=== PATIENT | female | born 1995 | race Caucasian/White ===

== ENCOUNTER 2017-01-21 16:19 | Outpatient (CLI) | payer BC, OTHER ==
[~2017-01-21] VITALS: Ht 160 cm; Wt 75.0 kg
[2017-01-21 17:35] VITALS: Ht 160 cm; Wt 75.0 kg
[2017-01-21] MEDS ORDERED: PRENTAB26 PO (17:39)
[2017-01-21 17:52] LABS: MEAN CELL VOLUME 81.3 fL (80-100); MEAN CORPUSCULAR HEMOGLOBIN 27.5 pg (25-34); MEAN PLATELET VOLUME 9.1 fL (7.4-10.4); PLATELET COUNT 303 K/uL (130-400); RED BLOOD COUNT 4.55 M/uL (4.2-5.4); WHITE BLOOD COUNT 13.13 K/uL (4.8-10.8)
[2017-01-21 18:02] LABS: INR 0.9 (0.9-1.1); PROTHROMBIN TIME (PATIENT) 9.2 SECONDS (9.0-12.0)
[2017-01-21 18:16] LABS: ALT/SGPT 13 U/L (12-78); AST/SGOT 7 U/L (15-37); BLOOD UREA NITROGEN 6 mg/dl (7-18); BUN/CREATININE RATIO 13.3 (10-20); CALCIUM 8.9 mg/dl (8.5-10.1); CARBON DIOXIDE 23 mmol/L (21-32); CHLORIDE 108 mmol/L (98-107); CREATININE 0.48 mg/dl (0.60-1.20); GLUCOSE 79 mg/dl (70-99); SODIUM 139 mmol/L (136-145); URIC ACID 4.2 mg/dl (2.6-7.2)
[2017-01-21 18:32] LABS: BASO % 0.1 %; BASO ABS # 0.01 K/uL (0-0.2); COMPLETE YES; EOS % 0.9 %; IG% 0.4 %; LYMPH % 23.8 %; LYMPH ABS # 3.12 K/uL (1.2-3.4); MEAN CORPUSCULAR HGB CONC 33.8 g/dl (32-36); NEUT % 69.8 %
== END 2017-01-21 18:44 | disposition home or self-care (01) ==
LOC: C.LD 16:19 → C.OPB 16:19
PROVIDERS: ATTEND Obstetrics & Gynecology
DX: O99.89 Other specified diseases and conditions complicating pregnancy, childbirth and the puerperium (principal); R03.0 Elevated blood-pressure reading, without diagnosis of hypertension; Z3A.39 39 weeks gestation of pregnancy

== ENCOUNTER 2017-01-27 04:37 | Inpatient (IN) | payer BC, OTHER ==
[~2017-01-27] VITALS: Ht 160 cm; Wt 75.9 kg
[~2017-01-27 04:37] MED LIST: PRENTAB26 PO
[2017-01-27 05:01] VITALS: Ht 160 cm; Wt 75.9 kg
[2017-01-27] MEDS ORDERED: LACTATED RINGER'S 1000ML 1,000 ML IV PRN (05:19)
[2017-01-27] MEDS ORDERED: LACTATED RINGER'S 1000ML 1,000 ML IV SCH (05:19)
[2017-01-27 06:19] LABS: HEMATOCRIT 37.1 % (37-47); MEAN CORPUSCULAR HEMOGLOBIN 28.2 pg (25-34); MEAN PLATELET VOLUME 9.6 fL (7.4-10.4); PLATELET COUNT 288 K/uL (130-400); RED BLOOD COUNT 4.47 M/uL (4.2-5.4); WHITE BLOOD COUNT 16.21 K/uL (4.8-10.8)
[2017-01-27] MEDS ORDERED: OXYTOCIN 30 UNITS/500ML NSS IV ONE (12:04)
--- NOTE | 2017-01-27 12:46 | Progress Note ---
Progress Note Date of Service Jan 27, 2017. Progress Note Patient is a 21 y/o at 40.5 weeks comes in with contractions that have been ongoing since yesterday morning. Her contractions increased in frequency and intensity this morning around 530 AM. On arrival she was joe every 2 -4 minutes and was found to be 4-5 cm dilated. Her care has been uneventful and she is GBS negative. Will admit to L&D for active labor. Will augment labor as needed and anticipate .
[2017-01-27] MEDS ORDERED: DIPHTHERIA/TETANUS/PERTUSSIS 0.5 ML SYR/VIAL IM. ONE (13:30)
[2017-01-27] MEDS ORDERED: BENZOCAINE 20% AER SPR 82.5 GM CAN EXT PRN (13:30)
[2017-01-27] MEDS ORDERED: ACETAMINOPHEN 325 MG TAB PO PRN (13:30)
[2017-01-27] MEDS ORDERED: LANOLIN OINT EXT PRN ×2 (13:30)
[2017-01-27] MEDS ORDERED: IBUPROFEN 600 MG TAB PO PRN (13:30)
[2017-01-27] MEDS ORDERED: ACETAMINOPHEN/CODEINE 300/30MG TAB PO PRN ×2 (13:30)
[2017-01-27] MEDS ORDERED: SUPERCREAM 0.870 % 15GM JAR EXT PRN (13:30)
[2017-01-27] MEDS ORDERED: HYDROCORTISONE ACETATE 25 MG SUPP PR PRN (13:30)
[2017-01-27] MEDS ORDERED: OXYTOCIN 30 UNITS/500ML NSS IV PRN (13:30)
[2017-01-27] MEDS ORDERED: OXYCODONE/ACETAMINOPHEN 5-325 TAB PO PRN (13:30)
--- NOTE | 2017-01-27 14:29 | DELIVERY SUMMARY ---
DATE OF OPERATION: 01/27/2017 TIME OF DELIVERY: 12:57 p.m. DELIVERY OF PLACENTA: 12:59 p.m. DELIVERY NOTE: The patient is a 21-year-old 2, para 2 at 40 weeks' and 5 days' gestation, was admitted for labor and delivery on the morning of 01/27/2017 in active labor. She did not receive an epidural for anesthesia. She was joe spontaneously on her own. She reached complete dilation at 12:28 and had spontaneous rupture of membranes right after with clear amniotic fluid noted. The patient pushed to delivery at 12:57 p.m. She delivered a viable male in the left occiput anterior position to intact perineum. Baby was delivered and placed on the patient's abdomen. Delayed cord clamping was performed. Apgars were 8 at 1 minute 9 at 5 minutes. Please see nursing notes for further baby assessment. Cord blood was then obtained. Intact placenta was 3-vessel cord was delivered at 12:59. Oxytocin infusion was than began. The lower uterine segment and vagina was cleared of any blood clots and debris. Exploration of the perineum noted a right labial laceration, which was injected with 1% lidocaine and repaired with 3-0 Vicryl suture and in continuous running fashion. Excellent hemostasis was noted. No other laceration seen. Estimated blood loss was 300 mL. All sponge, instrument and needle counts were found to be correct x2. Both the patient and baby tolerated the delivery well and were in recovery with stable vital signs. I attest to the content of the Intraoperative Record and any orders documented therein. Any exceptions are noted below. MTDD
[2017-01-27 17:45] VITALS: BP 110/68; PULSE 109; TEMP 36.8; O2SAT 98
[2017-01-27 19:30] VITALS: BP 105/70; PULSE 91; TEMP 36.7
[2017-01-27] MEDS: DOCUSATE SODIUM 100 MG CAP PO SCH (20:08)
[2017-01-27 23:15] VITALS: BP 108/66; PULSE 88; TEMP 36.8; O2SAT 99
[2017-01-28 03:45] VITALS: BP 113/58; PULSE 83; TEMP 36.9; O2SAT 97
[2017-01-28 05:42] LABS: HEMATOCRIT 32.2 % (37-47)
[2017-01-28 08:00] VITALS: BP 114/68; PULSE 105; TEMP 36.8
--- NOTE | 2017-01-28 08:26 | OB/GYN Progress Note ---
CLEAN RICE BROKER Progress Note Date of Service Jan 28, 2017. Subjective conversation w/ patient, physical exam Ambulation: ambulating normally Voiding: no voiding problems Passing Gas: Yes Diet Tolerance: Regular Diet Lochia: Small Feeding Type: Breast Feeding Objective Vital Signs Date Time Temp Pulse Resp B/P Pulse Ox O2 Delivery O2 Flow Rate FiO2 01/28/17 08:00 36.8 105 18 114/68 Room Air 01/28/17 03:45 36.9 83 18 113/58 97 Room Air 01/27/17 23:15 99 Room Air 01/27/17 23:15 36.8 88 18 108/66 99 Room Air 01/27/17 19:30 36.7 91 20 105/70 Room Air 01/27/17 17:45 36.8 109 16 110/68 98 01/27/17 17:45 98 Room Air Physical Exam General Appearance: WELL-APPEARING, NO APPARENT DISTRESS Abdomen: non tender, soft Fundus: Firm Extremities: non-tender, normal inspection, no pedal edema, no calf tenderness Laboratory Results Last 24 Hours Test 01/28/17 05:31 Hemoglobin 10.7 g/dL Hematocrit 32.2 % Assessment and Plan Post- Day Number: 1 Continue Routine Care: Tentative discharge in AM
[2017-01-28] MEDS: DOCUSATE SODIUM 100 MG CAP PO SCH ×2 (08:37→20:01)
[2017-01-28] MEDS: PRENATAL VITAMIN TAB PO SCH (08:37)
[2017-01-28] MEDS: FERROUS SULFATE 325 MG TAB PO SCH (08:38)
[2017-01-28 11:45] VITALS: BP 112/72; PULSE 71; TEMP 36.3
[2017-01-28 15:15] VITALS: BP 124/76; PULSE 88; TEMP 36.6
[2017-01-28] MEDS ORDERED: BISACODYL 5 MG TABEC PO SCH (20:00)
[2017-01-29] VITALS: BP 106/63; PULSE 76
[2017-01-29 06:22] LABS: HEMATOCRIT 30.2 % (37-47); MEAN CELL VOLUME 84.8 fL (80-100); MEAN CORPUSCULAR HEMOGLOBIN 28.1 pg (25-34); MEAN CORPUSCULAR HGB CONC 33.1 g/dl (32-36); MEAN PLATELET VOLUME 9.3 fL (7.4-10.4); PLATELET COUNT 266 K/uL (130-400); RED BLOOD COUNT 3.56 M/uL (4.2-5.4); WHITE BLOOD COUNT 10.72 K/uL (4.8-10.8)
[2017-01-29] MEDS ORDERED: BISACODYL 10 MG SUPP PR PRN (07:00)
[2017-01-29 07:21] VITALS: BP 95/55; PULSE 80; TEMP 36.5
--- NOTE | 2017-01-29 07:21 | OB/GYN Progress Note ---
BINDER CASER Progress Note Date of Service: Jan 29, 2017. Patient is seen and examined. She feels well, no complaints. Ambulating without dizziness Voiding without difficulty Tolerating regular diet with out N&V Bleeding is minimal No fever/ chills/ CP/ SOB/ N&V/ Leg pain Breast feeding without problems Date Time Temp Pulse Resp B/P Pulse Ox O2 Delivery O2 Flow Rate FiO2 01/29/17 00:00 76 16 106/63 01/29/17 00:00 Room Air 01/28/17 15:15 Room Air 01/28/17 15:15 36.6 88 18 124/76 Room Air 01/28/17 11:45 36.3 71 16 112/72 Room Air 01/28/17 08:00 36.8 105 18 114/68 Room Air 01/28/17 07:20 Room Air Test 01/21/17 17:42 01/27/17 06:00 01/28/17 05:31 01/29/17 05:45 White Blood Count 13.13 H 16.21 H 10.72 Red Blood Count 4.55 4.47 3.56 L Hemoglobin 12.5 12.6 10.7 L 10.0 L Hematocrit 37.0 37.1 32.2 L 30.2 L Mean Corpuscular Volume 81.3 83.0 84.8 Mean Corpuscular Hemoglobin 27.5 28.2 28.1 Mean Corpuscular Hemoglobin Concent 33.8 34.0 33.1 Platelet Count 303 288 266 Mean Platelet Volume 9.1 9.6 9.3 Neutrophils (%) (Auto) 69.8 Lymphocytes (%) (Auto) 23.8 Monocytes (%) (Auto) 5.0 Eosinophils (%) (Auto) 0.9 Basophils (%) (Auto) 0.1 Neutrophils # (Auto) 9.17 H Lymphocytes # (Auto) 3.12 Monocytes # (Auto) 0.66 H Eosinophils # (Auto) 0.12 Basophils # (Auto) 0.01 RDW Standard Deviation 38.2 39.8 42.4 RDW Coefficient of Variation 12.9 13.3 13.8 Immature Granulocyte % (Auto) 0.4 Immature Granulocyte # (Auto) 0.05 H Red Blood Cell Morphology Unremarkable Prothrombin Time 9.2 Prothrombin Time INR 0.9 PTT 26.2 Partial Thromboplastin Ratio 1.0 Sodium Level 139 Potassium Level 4.0 Chloride Level 108 H Carbon Dioxide Level 23 Anion Gap 8.0 Blood Urea Nitrogen 6 L Creatinine 0.48 L Est Creatinine Clear Calc Drug Dose 176.8 Estimated GFR () > 150.0 Estimated GFR (Non- 138.3 BUN/Creatinine Ratio 13.3 Random Glucose 79 Uric Acid 4.2 Calcium Level 8.9 Aspartate Amino Transferase (AST) 7 L Alanine Aminotransferase (ALT) 13 Lactate Dehydrogenase 182 PE: General: Alert, orientedx3, NAD Abd: soft, NT, fundus firm, below Umbilicus Perineum intact, Lochia rubra minimal Ext; NT, no edema AP: 21 yo s/p , ppd# 2 VSS Afebrile doing well Continue routine care All questions were answered Discussed when to call D/C home , f/u in office
--- NOTE | 2017-01-29 07:23 | Discharge Instructions ---
Discharge Instructions Date of Service Jan 29, 2017. Admission Reason for Admission: LABOR Discharge Discharge Diagnosis / Problem: Discharge Goals Goal(s): Routine recovery after delivery Medications Continue Dispensed Medications: supercream, dermaplast, inhaler Activity Recommendations Activity Limitations: as noted below Lifting Limitations: gradually increase as tolerated Exercise/Sports Limitations: until after follow-up appointment May Resume Sexual Activity: after follow-up appointment Shower/Bathe: no limitations Driving or Machine Use: ACTIVITY RECOMMENDATIONS: * Gradual return to full activity over the next 2-3 weeks. * No lifting - nothing heavier than baby over the next 2-3 weeks. * Do not engage in vigorous exercise, sexual activity or sports until cleared by your physician. * Do not drive or operate any motorized equipment until cleared by your physician. * You may shower/bathe daily. BREAST CARE: If you are not breast feeding: * Wear a supportive bra 24 hours a day for one to two weeks. * Avoid stimulating your breasts and nipples as much as possible during the first few weeks after delivery. * When taking a shower, have the warm water hit your back, not breasts. * When your breasts feel full, apply ice packs. Usually three to four times a day helps ease the discomfort. * Take a mild pain medication (Tylenol/Motrin) when you are uncomfortable. If breast feeding: * Use breast milk to lubricate nipples. Lansinoh cream may be used for sore nipples. You do not need to remove cream prior to breast feeding. If using a different brand of cream, check the label for directions regarding removal of cream prior to nursing. * Wear a supportive bra. * If having problems with breasts or breast feeding, call a bridal stylist sales consultant or your health care provider. EPISIOTOMY CARE: After delivery, if you have an episiotomy (stitches), the following steps will ease discomfort and aid healing. * For the first 24 hours after delivery, place ice packs next to your episiotomy to help reduce swelling. * After the first 24 hour-period, sitz baths, either portable or in the tub, are suggested. A shower with a shower arm sprayed over the episiotomy may be comforting. * Sahra care should be done after each voiding and bowel movement. Squirt warm water from a plastic bottle over the perineum (region of the body between the anus and urinary opening) and pat dry. * Use Dermoplast to ease discomfort. Shake container. [place] directly over the episiotomy. * Place a Tucks on a clean sanitary pad next to your episiotomy. OVER THE COUNTER MEDICATION: * For discomfort or pain, you may use Acetaminophen (Tylenol), Ibuprofen (Advil ), or Naproxen (Aleve) following the package directions. * For constipation you may use Colace following the package directions. SPECIAL CARE INSTRUCTIONS: When you are discharged from the hospital, it is important for you to follow the instructions listed below: * During the first week at home, you should be able to care for yourself and your baby. In addition, the usual light household activities are encouraged. * Limit your activities to the way you feel. Do not try to clean the house or move furniture. Be sensible. * If you actively engage in sports and have done so up until the time of your delivery, you may resume these activities as soon as you feel able. This may take up to one month or even longer. Use good judgment. * Continue to take your vitamins for at least six weeks after the of your baby. * Your diet need not be limited unless you were on a special diet before your delivery. Breast-feeding mothers need around 2500 calories per day and at least 64-80 ounces of fluid per day (8 to 10 glasses). * You should eat foods from the four major food groups. Crash diets or fad diets are to be avoided. Eating lean meats, fresh fruits and vegetables, low-fat dairy products, high fiber foods and a regular exercise program, will help you get back to your pre- weight without putting your health at risk. * Constipation is sometimes a problem after delivery. Take a mild laxative as needed. If breast feeding, Milk of Magnesia is acceptable to use. You may use a suppository or Fleets enema if no episiotomy. * A daily shower or tub bath is suggested. Be sure to thoroughly and gently dry the perineum. * A bloody vaginal discharge will usually continue until around four weeks post . A small amount of bleeding may continue for as long as six weeks. Vaginal discharge changes from the bright red bleeding after delivery to pink then brownish and finally yellowish-pink before becoming white and disappearing. * Bleeding may increase with activity. Your first period may come in 4-8 weeks. If you are breast feeding, your period may be delayed even longer. * [place] (sex) can begin whenever both you and your partner feel comfortable and do not have any form of genital infection. It is recommended that you wait until after your return appointment and discuss with your physician. If you have questions, please talk to your health care practitioner. A condom should be used to prevent infection and . * Foreplay, gentle intercourse and lubrication is very important the first several times to prevent pain. A water-based lubricant such as K-Y jelly or Astroglide may be used. * Tampons may be used six weeks after delivery. * Douching should be avoided for 6 weeks after delivery. * If you have RH negative blood and your baby is RH positive, you will receive RHOGAM by injection prior to discharge. The nurse will give you a card to keep with you that has the date and place that you received RHOGAM after delivery. * During your care, you had a Rubella screen done to check for the presence of rubella antibodies in your blood. If your test was negative, you will receive a Rubella vaccine prior to discharge. This vaccine may cause a fever, soreness at the injection site and flu-like symptoms. If these symptoms persist, notify your health care practitioner. is not advised for three months after a Rubella vaccine. There is a higher chance of having a baby with defects if conceived within three months of getting the vaccine. * If you were discharged 24 hours from delivery or before 48 hours: Visiting nurses will come to your home 48 hours after discharge to assess you and your baby. The visiting nurse will meet with you while you are in the hospital to arrange a time and get directions to your home. * Verbalizes understanding of car seat law as reviewed with patient nursing. * Car Seat hand-out given and reviewed with patient by nursing. * Shaken baby information reviewed with patient by nursing. Call you doctor if: * Heavy bleeding (saturating several pads an hour) or passing clots the size of your fist. * A fever >101 degrees F (38.3 degrees C) on two occasions four hours apart and/or chills. * Unusual pain in the pelvic or vaginal areas. * "Baby Blues" lasting longer than two weeks. If you have any questions or concerns, call your health care practitioner at . FOLLOW-UP VISIT: * Please call the office at to schedule a 6 week examination. It is important you keep this appointment. * It is important for you to make arrangements for either yearly or twice yearly check-ups thereafter. . Current Hospital Diet Patient's current hospital diet: Regular OB Diet Discharge Diet Recommended Diet: Regular Diet Pending Studies Studies pending at discharge: no Medical Emergencies . Who to Call and When: Medical Emergencies: If at any time you feel your situation is an emergency, please call 911 immediately. . Non-Emergent Contact Non-Emergency issues call your: Primary Care Provider, Surgeon Call Non-Emergent contact if: temperature is above 100.5, your pain is not controlled, your pain is worsening . . "Provider Documentation" section prepared by Lisa Fry. VTE Core Measure Inpt VTE Proph given/why not?: Treatment not indicated
[2017-01-29] MEDS: DOCUSATE SODIUM 100 MG CAP PO SCH (08:16)
[2017-01-29] MEDS: FERROUS SULFATE 325 MG TAB PO SCH (08:16)
[2017-01-29] MEDS: PRENATAL VITAMIN TAB PO SCH (08:16)
== END 2017-01-29 11:05 | disposition home or self-care (01) | DRG 775 ==
LOC: C.OPB 04:37 → C.LD 04:42 → C.OPB 05:25 → C.OBG 17:08
PROVIDERS: ADMIT Obstetrics & Gynecology; ATTEND Obstetrics & Gynecology
PROC: 10E0XZZ Delivery of Products of Conception, External Approach (ICD-10-PCS; principal; 2017-01-27)
PROC: 0UQMXZZ Repair Vulva, External Approach (ICD-10-PCS; principal; 2017-01-27)
DX: O48.0 Post-term pregnancy (principal); O70.0 First degree perineal laceration during delivery; Z3A.40 40 weeks gestation of pregnancy; Z37.0 Single live birth

== ENCOUNTER 2019-09-09 07:58 | Inpatient (IN) ==
[2019-09-09] MEDS ORDERED: OXYTOCIN 30 UNITS/500 ML BAG IV PRN ×3 (08:35→21:12)
[2019-09-09 08:53] LABS: Hematocrit (blood only) 38.8 % (37-47); Hemoglobin 13.2 g/dL (12.0-16.0); Mean Corpuscular Volume 85.3 fL (80-100); Mean Platelet Volume 9.5 fL (7.4-10.4); Platelet Count 304 K/uL (130-400); RDW Coefficient of Variation 13.1 % (11.5-14.5); RDW Standard Deviation 40.5 fL (36.4-46.3); Red Blood Count 4.55 M/uL (4.2-5.4); White Blood Count 11.73 K/uL (4.8-10.8)
[2019-09-09] MEDS: LACTATED RINGER'S 1,000 ML IV PRN ×3 (09:16→16:13)
[2019-09-09] MEDS: CALCIUM CARBONATE 500 MG CHEWABLE TAB PO PRN ×2 (11:34→16:15)
[2019-09-09] MEDS ORDERED: ePHEDrine sulfate 50 MG/ML AMP ONE (15:23)
[2019-09-09] MEDS ORDERED: fentaNYL citrate 100 MCG/2 ML VIAL ONE (15:23)
[2019-09-09] MEDS ORDERED: BUPIVACAINE 0.25% 30 ML VIAL ONE (15:24)
[2019-09-09] MEDS ORDERED: fentaNYL 2MCG/ML ROPIV 1.25MG/ML 100 ML BAG EPI ONE (15:25)
--- NOTE | 2019-09-09 15:55 | Anesthesiology Consultation ---
Date of Service September 09, 2019 Assessment & Plan Chart Review Chart Review: Acceptable Risk for Labor Epidural ASA ASA2 Proposed Anesthesia Anesthesia Type: Labor Epidural Risk / Benefits Reviewed With: PT / POA / Parent / Guardian, Accepts Plan and Informed Consent Obtained History Height/Weight Height: 5 ft 3 in Weight: 62.596 kg Allergies Allergy/AdvReac Type Severity Reaction Status Date / Time No Known Allergies Allergy Verified 09/04/19 17:47 Medications Home Medications Medication Instructions Recorded Confirmed Last Taken PNV cmb#95-ferrous fumarate-FA 1 tab PO DAILY 09/04/19 09/09/19 09/07/19 [] magnesium 400 mg PO BID 09/04/19 09/09/19 09/07/19 Active Medications Generic Name Dose Route Start Last Admin Trade Name Freq PRN Reason Stop Dose Admin Calcium Carbonate 1,000 mg 09/09/19 11:21 09/09/19 11:34 Tums PO 10/09/19 11:20 1,000 mg Q4 PRN Administration Indigestion Lactated Ringer's 1,000 mls @ 125 mls/hr 09/09/19 08:35 09/09/19 15:19 Lr IV 09/11/19 08:34 999 mls/hr .Q8H PRN Administration L&D Protocol Protocol Oxytocin 30 units in 500 mls @ 8 mls/hr 09/09/19 08:38 09/09/19 15:06 Pitocin IV 09/11/19 08:37 0.48 units/hr .Q24H PRN 8 mls/hr Labor Induction/Augmentation Titration Protocol 0.48 UNITS/HR Past Medical History Medical History (Updated 09/09/19 @ 08:14 by Isamar Aparicio RN) No known health problems Vaginal delivery Exercise / Class Metabolic Activity II 4-5 Yardwork/Stairs/Walk up hill Past Family History Family History (Updated 09/09/19 @ 08:14 by Isamar Aparicio RN) Grandfather (Maternal) Diabetes Past Surgical History Surgical History (Updated 09/09/19 @ 08:14 by Isamar Aparicio RN) No history of previous surgery Past Anesthesia History No Hx of Anesthesia Complications and No Family Hx of Anesthesia Complications History of PONV No Hx of PONV and No Hx of Motion Sickness Social History Smoking Status: Current every day smoker tobacco type: cigarettes Smoking cigarettes per day: 2 Do You Dip or Chew Tobacco: No Hx Alcohol Use: No Hx Substance Use: No substance use type: does not use Physical Exam Vital Signs Last Vital Signs Temp 37.2 C 09/09/19 14:19 Pulse 83 09/09/19 16:01 Resp 18 09/09/19 15:07 BP 103/58 L 09/09/19 16:00 Pulse Ox 100 09/09/19 16:01 Testing Laboratory Results 09/09/19 08:40
[2019-09-09] MEDS ORDERED: fentaNYL 2MCG/ML ROPIV 1.25MG/ML 100 ML BAG EPI PRN (16:03)
[2019-09-09] MEDS ORDERED: ePHEDrine sulfate 50 MG/ML AMP IV PRN (16:03)
[2019-09-09] MEDS ORDERED: NALOXONE HCL 0.4 MG/1 ML VIAL/CARP IV PRN (16:03)
[2019-09-09] MEDS ORDERED: DiphenhydrAMINE HCL 50 MG/ML VIAL IV PRN (16:03)
[2019-09-09] MEDS ORDERED: NALOXONE HCL 1 MG in SODIUM CHLORIDE 0.9% 1000ML 1,000 ML IV PRN (16:03)
[2019-09-09] MEDS ORDERED: NALBUPHINE HCL INJ 10 MG/ML AMP IV PRN (16:03)
[2019-09-09] MEDS ORDERED: ONDANSETRON INJ 2 MG/ML 2 ML VIAL IV PRN ×2 (16:03→21:51)
[2019-09-09] MEDS ORDERED: METHYLERGONOVINE MALEATE 0.2 MG/ML AMP ONE (21:09)
[2019-09-09] MEDS ORDERED: SUPERCREAM 0.870% 15 GM JAR EXT PRN (21:12)
[2019-09-09] MEDS ORDERED: DIPHTHERIA/TETANUS/PERTUSSIS 0.5 ML SYR/VIAL IM ONE (21:12)
[2019-09-09] MEDS ORDERED: BISACODYL 10 MG SUPP PR PRN (21:12)
[2019-09-09] MEDS ORDERED: OXYCODONE/ACETAMINOPHEN 5mg/325mg TAB PO PRN (21:12)
[2019-09-09] MEDS ORDERED: ACETAMINOPHEN W/CODEINE #3 1 TAB PO PRN (21:12)
[2019-09-09] MEDS ORDERED: HYDROCORTISONE ACETATE 25 MG SUPP PR PRN (21:12)
[2019-09-09] MEDS ORDERED: ACETAMINOPHEN 325 MG TAB PO PRN (21:12)
[2019-09-09] MEDS ORDERED: BENZOCAINE 20% AER SPR 82.5 GM CAN EXT PRN (21:12)
[2019-09-09] MEDS ORDERED: IBUPROFEN 600 MG TAB PO PRN (21:12)
[2019-09-09] MEDS ORDERED: MEASLES, MUMPS & RUBELLA VIRUS VIAL SQ ONE (21:12)
[2019-09-09] MEDS ORDERED: METHYLERGONOVINE MALEATE 0.2 MG/ML AMP IM ONE (21:12)
[2019-09-09] MEDS ORDERED: ONDANSETRON INJ 2 MG/ML 2 ML VIAL ONE (21:52)
--- NOTE | 2019-09-09 22:08 | Anesthesia Procedure Note ---
Date of Service September 09, 2019 Anesthesia Post Epidural Note Vital Signs Vital Signs: Temp Pulse Resp BP Pulse Ox 37.7 C H 77 18 112/56 L 99 09/09/19 20:00 09/09/19 22:06 09/09/19 17:36 09/09/19 22:06 09/09/19 21:06 Pain Intensity Left Abdomen: Pain Intensity: 1 Notes Mental Status: alert / awake / arousable and participated in evaluation Patient Amnestic to Procedure: Yes Nausea / Vomiting: adequately controlled Pain: adequately controlled Airway Patency, RR, SpO2: stable & adequate BP & HR: stable & adequate Hydration State: stable & adequate Anesthetic Complications: no major complications apparent and Pt Satisfied with anesthetic care
--- NOTE | 2019-09-09 22:59 | Operative Report ---
DATE OF OPERATION: 09/09/2019 DELIVERY NOTE 2, para 2, blood type is A positive. Group B strep negative. Due date 09/14/2019. Had a history of having a growth retarded fetus first time about 6 pounds and she had some questionable strips in the office. They were evaluated at the hospital, they turned out to be good and reactive. She was brought in for induction. She was several centimeters dilated when she came in, she was started directly on IV Pitocin. Membranes were eventually ruptured surgically. She had epidural anesthesia for pain control, went to full dilatation, delivered a live via direct occiput anterior position over an intact perineum. Infant was suctioned through the mouth and the nose. Shoulders were delivered without difficulty. Cord was clamped, cut by the patient's mother. Cord blood was taken. With IV Pitocin running, the placenta was removed intact. There were no lacerations. She was given 0.2 of Methergine in addition to the Pitocin. Estimated blood loss was 300 mL. Apgars were deferred to the nurses. The patient tolerated the procedure well. I attest to the content of the Intraoperative Record and any orders documented therein. Any exception s are noted below.
[2019-09-10 07:06] LABS: Hematocrit (blood only) 34.7 % (37-47); Hemoglobin 11.8 g/dL (12.0-16.0); Mean Corpuscular Hemoglobin 29.3 pg (25-34); Mean Corpuscular Volume 86.1 fL (80-100); Mean Platelet Volume 9.6 fL (7.4-10.4); Platelet Count 276 K/uL (130-400); RDW Coefficient of Variation 13.1 % (11.5-14.5); RDW Standard Deviation 41.3 fL (36.4-46.3); Red Blood Count 4.03 M/uL (4.2-5.4); White Blood Count 15.77 K/uL (4.8-10.8)
--- NOTE | 2019-09-10 08:25 | Obstetrical Progress Note ---
Date of Service September 10, 2019 Subjective Patient is seen and examined. She feels well, no complaints. Ambulating without dizziness Voiding without difficulty Tolerating regular diet with out N&V Bleeding is minimal No fever/ chills/ CP/ SOB/ N&V/ Leg pain Breast feeding without problems Vital Signs Temp Pulse Pulse Resp BP BP Pulse Ox 09/10/19 07:57 36.8 C 84 20 111/71 09/10/19 03:15 36.8 C 78 18 114/72 96 09/10/19 00:00 36.7 C 76 16 117/69 98 09/09/19 23:06 88 110/58 L 09/09/19 22:51 96 H 117/67 09/09/19 22:36 85 122/68 09/09/19 22:21 72 113/73 09/09/19 22:06 77 112/56 L 09/09/19 22:01 75 113/55 L 09/09/19 21:51 112 H 192/88 H 09/09/19 21:21 98 H 133/67 09/09/19 21:06 120 H 99 09/09/19 21:04 121 H 87 L 09/09/19 21:01 102 H 81 L 09/09/19 20:56 103 H 100 09/09/19 20:51 98 H 132/81 100 09/09/19 20:46 88 100 09/09/19 20:41 91 H 100 09/09/19 20:38 94 H 135/75 09/09/19 20:36 104 H 97 09/09/19 20:31 90 99 09/09/19 20:26 87 100 PE: General: Alert, orientedx3, NAD Abd: soft, NT, fundus firm, below Umbilicus Perineum intact, Lochia rubra minimal Ext; NT, no edema AP: 24 yo s/p , ppd# 1 VSS Afebrile doing well Continue routine care All questions were answered D/C home tomorrow Results & Data Vital Signs (Past 12 Hours) Vital Signs Temp Pulse Pulse Resp BP BP Pulse Ox 09/10/19 07:57 36.8 C 84 20 111/71 09/10/19 03:15 36.8 C 78 18 114/72 96 09/10/19 00:00 36.7 C 76 16 117/69 98 09/09/19 23:06 88 110/58 L 09/09/19 22:51 96 H 117/67 09/09/19 22:36 85 122/68 09/09/19 22:21 72 113/73 09/09/19 22:06 77 112/56 L 09/09/19 22:01 75 113/55 L 09/09/19 21:51 112 H 192/88 H 09/09/19 21:21 98 H 133/67 09/09/19 21:06 120 H 99 09/09/19 21:04 121 H 87 L 09/09/19 21:01 102 H 81 L 09/09/19 20:56 103 H 100 09/09/19 20:51 98 H 132/81 100 09/09/19 20:46 88 100 09/09/19 20:41 91 H 100 09/09/19 20:38 94 H 135/75 09/09/19 20:36 104 H 97 09/09/19 20:31 90 99 09/09/19 20:26 87 100
[2019-09-10] MEDS: FERROUS SULFATE 325 MG TAB PO SCH (08:41)
[2019-09-10] MEDS: DOCUSATE SODIUM 100 MG CAP PO SCH ×2 (08:41→20:33)
[2019-09-10] MEDS: PRENATAL VITAMIN 1 TAB PO SCH (08:41)
[2019-09-10] MEDS ORDERED: BISACODYL 5 MG TABEC PO SCH (20:00)
[2019-09-10 23:03] VITALS: O2SAT 98
[2019-09-11 06:53] LABS: Hematocrit (blood only) 34.3 % (37-47); Hemoglobin 11.2 g/dL (12.0-16.0)
[2019-09-11 07:29] VITALS: BP 108/69; PULSE 108; TEMP 98.2
[2019-09-11] MEDS: PRENATAL VITAMIN 1 TAB PO SCH (08:30)
[2019-09-11] MEDS: FERROUS SULFATE 325 MG TAB PO SCH (08:30)
[2019-09-11] MEDS: DOCUSATE SODIUM 100 MG CAP PO SCH (08:30)
--- NOTE | 2019-09-11 09:04 | Obstetrical Progress Note ---
Date of Service September 11, 2019 Assessment & Plan (1) normal course: PPD #2 [pt doing well d/c home with instructions Subjective Ambulation: ambulating normally Voiding: no voiding problems Passing Gas:: Yes Diet Tolerance:: regular diet Lochia:: Small Feeding Type:: breast feeding Review of Systems All systems reviewed & are unremarkable except as noted in HPI & below Physical Exam Constitutional WD/WN, vitals as above well developed and well nourished Eyes PERRL, conjunctivae normal, anicteric sclerae Neck trachea midline, no thyromegaly Respiratory normal respiratory effort, lungs clear to auscultation Auscultation: no crackles, no rales and no wheezes Cardiovascular RRR, no murmur, no edema Gastrointestinal (Abdomen) normal bowel sounds, soft, nontender, no hepatosplenomegaly Uterus is below umbilicus Musculoskeletal no cyanosis or clubbing, extremities motor strength 5/5 Skin no rashes, warm and dry Neurologic patellar DTR's 2+ bilat, sensation intact Psychiatric A+Ox3, euthymic affect Genitourinary normal external appearance Results & Data Vital Signs (Past 12 Hours) Vital Signs Temp Pulse Resp BP Pulse Ox 09/11/19 07:28 36.8 C 108 H 18 108/69 98 09/10/19 23:30 36.7 C 85 17 107/60 98
== END 2019-09-11 11:55 | disposition home or self-care (01) | DRG 807 ==
LOC: 4S1 07:58 → 4S2 23:55

== ENCOUNTER 2021-06-02 04:06 | Inpatient (IN) ==
[2021-06-02] MEDS ORDERED: OXYTOCIN 30 UNITS/500 ML BAG IV PRN ×2 (04:39→06:39)
[2021-06-02] MEDS ORDERED: LACTATED RINGER'S 1,000 ML IV PRN (04:45)
[2021-06-02] MEDS ORDERED: PENICILLIN G POTASSIUM 6 MU in DEXTROSE 5% 250 ML IV STA (04:46)
[2021-06-02] MEDS ORDERED: PENICILLIN G POTASSIUM 3 MU in DEXTROSE 5% 100 ML IV PRN (05:00)
--- NOTE | 2021-06-02 05:08 | History & Physical Report ---
Date of Service June 02, 2021 Assessment & Plan Admission and Anticipated Discharge Date Admission Date: June 02, 2021 History of Present Illness Chief Complaint: term in labor Primary Care Provider: MIRIAM PCP 26 F P2002 at 38.4 weeks admitted in active labor at 8cm. GBS is positive. Covid is pending. Allergies Allergy/AdvReac Type Severity Reaction Status Date / Time No Known Allergies Allergy Verified 06/02/21 04:18 Home Medications Medication Instructions Recorded Confirmed Type vit no.95-ferrous 1 tab PO DAILY 09/04/19 06/02/21 History fumarate 28 mg-folic acid 800 mcg tablet () Patient History Medical History No known health problems Vaginal delivery Surgical History No history of previous surgery Family History Grandfather (Maternal) Diabetes Social History Smoking Status: Current every day smoker Cigarettes Per Day: 2; Second Hand Exposure: Yes; Do You Dip or Chew Tobacco: No; Hx Alcohol Use: No Hx Substance Use: No Preferred Language: Gabonese Communication Ability: Effective Director Metabolism Required: No Beliefs That Will Affect Care: None marital status: Single Current Living Situation: Parent and Family Current Living Situation Comment: Lives with parents and son, Max Other Information That Helps Us Care for You: No Feels Safe at Home: Yes Safety Concerns: Feels Safe At This Time Assistive Devices: None OB History x2 APPRISE COUNSELOR History wnl Review of Systems All systems reviewed & are unremarkable except as noted in HPI & below Physical Exam Constitutional: comfortable Eyes: PERRL, conjunctivae normal, anicteric sclerae Respiratory: normal respiratory effort, lungs clear to auscultation Cardiovascular: RRR, no murmur, no edema Skin: no rashes, warm and dry normal turgor Neurologic: patellar DTR's 2+ bilat, sensation intact Psychiatric: A+Ox3, euthymic affect Genitourinary: Manual OB Exam: + cervical dilation 8 cm and + cervical effacement 100% OB Exam Monitor Tracing: + external FHT monitor used, + external uterine monitor used, + category I and + normal FHT variability Results & Data ([facility]) Vital Signs (Past 12 Hours) Vital Signs Temp Pulse Resp BP 06/02/21 04:24 97 H 136/86 06/02/21 04:19 36.9 C 18 06/02/21 04:15 93 H 140/88
[2021-06-02 05:13] LABS: Hematocrit (blood only) 35.9 % (37-47); Mean Corpuscular Hemoglobin 27.5 pg (25-34); Mean Corpuscular Volume 82.3 fL (80-100); Mean Platelet Volume 9.8 fL (7.4-10.4); Platelet Count 327 K/uL (130-400); RDW Coefficient of Variation 13.1 % (11.5-14.5); RDW Standard Deviation 39.6 fL (36.4-46.3); Red Blood Count 4.36 M/uL (4.2-5.4); White Blood Count 12.79 K/uL (4.8-10.8)
[2021-06-02 05:29] LABS: Mean Corpuscular Hgb Conc 33.4 g/dL (32-36)
--- NOTE | 2021-06-02 06:03 | Labor Progress Brief Note ---
Date of Service June 02, 2021 Assessment & Plan Admission and Anticipated Discharge Date Admission Date: June 02, 2021 Physical Exam Genitourinary: Manual OB Exam: + cervical dilation 9 cm, + cervical effacement 100%, + station 0 and + amniotic fluid clear OB Exam Monitor Tracing: + external FHT monitor used, + external uterine monitor used, + category I and + normal FHT variability AROM with amni-hook clear fluid Results & Data ([facility]) Vital Signs (Past 12 Hours) Vital Signs Temp Pulse Resp BP 06/02/21 04:24 97 H 136/86 06/02/21 04:19 36.9 C 18 06/02/21 04:15 93 H 140/88
[2021-06-02] MEDS ORDERED: SUPERCREAM 0.870% 15 GM JAR EXT PRN (06:39)
[2021-06-02] MEDS ORDERED: HYDROCORTISONE ACETATE 25 MG SUPP PR PRN (06:39)
[2021-06-02] MEDS ORDERED: BENZOCAINE 20% AER SPR 82.5 GM CAN EXT PRN (06:39)
[2021-06-02] MEDS ORDERED: ACETAMINOPHEN 325 MG TAB PO PRN (06:39)
[2021-06-02] MEDS ORDERED: DIPHTHERIA/TETANUS/PERTUSSIS 0.5 ML SYR/VIAL IM ONE (06:39)
[2021-06-02] MEDS ORDERED: bisacodyL 10 MG SUPP PR PRN (06:39)
--- NOTE | 2021-06-02 06:40 | Delivery Summary ---
Vaginal Delivery Summary Date of Service June 02, 2021 Vaginal Delivery Summary Delivery Note live female SHWAN over intact perineum with nucal cord x1 reduced at delivery of head with delayed cord clamping and Apgars 8/9 weight pending. Cord blood obtained followed by spontaneous delivery of intact placenta. No tears. EBL 100 ml. Final sponge and instrument counts are correct. Mom and baby stable.
[2021-06-02] MEDS ORDERED: LACTATED RINGER'S 1,000 ML IV SCH (06:45)
[2021-06-02] MEDS: PRENATAL VITAMIN 1 TAB PO SCH (07:33)
[2021-06-02] MEDS: FERROUS SULFATE 325 MG TAB PO SCH (07:33)
[2021-06-02] MEDS: DOCUSATE SODIUM 100 MG CAP PO SCH ×2 (07:33→21:22)
[2021-06-02] MEDS: IBUPROFEN 600 MG TAB PO PRN ×2 (08:13→19:32)
[2021-06-02] MEDS ORDERED: NON-FORMULARY MEDICATION (Pnv Cmb#95-Ferrous Fumarate-Fa [Prenatal] 28 mg iron- 800 mcg Ta PO SCH (09:00)
--- NOTE | 2021-06-02 09:12 | Obstetrical Progress Note ---
Date of Service June 02, 2021 Assessment & Plan (1) normal course: PPD #2 pt doing well D/c home with instructions Day #:: 2 Results & Data ([facility]) Vital Signs (Past 12 Hours) Vital Signs Temp Pulse Resp BP 06/02/21 08:53 75 125/71 06/02/21 08:38 68 114/62 06/02/21 08:17 18 06/02/21 08:08 60 122/75 06/02/21 07:53 70 122/68 06/02/21 07:47 18 06/02/21 07:38 78 128/74 06/02/21 07:32 18 06/02/21 07:23 82 128/73 06/02/21 07:17 18 06/02/21 07:08 69 122/71 06/02/21 07:02 18 06/02/21 06:53 73 134/88 06/02/21 06:49 69 132/82 06/02/21 06:47 36.3 C L 06/02/21 06:38 86 132/80 06/02/21 04:24 97 H 136/86 06/02/21 04:19 36.9 C 18 06/02/21 04:15 93 H 140/88
[2021-06-03 06:18] LABS: Hematocrit (blood only) 33.7 % (37-47); Hemoglobin 10.9 g/dL (12.0-16.0); Mean Corpuscular Hemoglobin 26.8 pg (25-34); Mean Corpuscular Hgb Conc 32.3 g/dL (32-36); Mean Platelet Volume 9.6 fL (7.4-10.4); Platelet Count 306 K/uL (130-400); RDW Coefficient of Variation 13.2 % (11.5-14.5); RDW Standard Deviation 39.9 fL (36.4-46.3); Red Blood Count 4.06 M/uL (4.2-5.4); White Blood Count 12.74 K/uL (4.8-10.8)
[2021-06-03] MEDS: FERROUS SULFATE 325 MG TAB PO SCH (08:21)
[2021-06-03] MEDS: PRENATAL VITAMIN 1 TAB PO SCH (08:21)
[2021-06-03] MEDS: DOCUSATE SODIUM 100 MG CAP PO SCH ×2 (08:21→20:36)
--- NOTE | 2021-06-03 09:58 | Obstetrical Progress Note ---
Date of Service June 03, 2021 Subjective Ambulation: ambulating normally Voiding: no voiding problems Passing Gas:: Yes Diet Tolerance:: regular diet Feeding Type:: breast feeding Current Pain Level(1-10): 0 doing well will go home in Am since baby has to stay Physical Exam Constitutional WD/WN, vitals as above comfortable Genitourinary fundus firm abdomen soft no edema neg [employer]ney's tent d/c in AM Results & Data ([facility]) Vital Signs (Past 12 Hours) Vital Signs Temp Pulse Resp BP 06/03/21 04:20 36.8 C 71 16 100/60 06/02/21 23:00 36.7 C 75 16 116/74 Laboratory Results Laboratory Results - last 72 hr 06/02/21 06/02/21 06/02/21 04:42 04:42 04:55 WBC 12.79 H RBC 4.36 Hgb 12.0 Hct 35.9 L MCV 82.3 MCH 27.5 MCHC 33.4 RDW Std Deviation 39.6 RDW Coeff of [place] 13.1 Plt Count 327 MPV 9.8 COVID-19 Eval Order Covid19 [facility] SARS-CoV-2, RNA, NAAT NEGATIVE 06/03/21 06:03 WBC 12.74 H RBC 4.06 L Hgb 10.9 L Hct 33.7 L MCV 83.0 MCH 26.8 MCHC 32.3 RDW Std Deviation 39.9 RDW Coeff of [place] 13.2 Plt Count 306 MPV 9.6 COVID-19 Eval Order SARS-CoV-2, RNA, NAAT
[2021-06-03] MEDS ORDERED: bisacodyL 5 MG TABEC PO SCH (20:00)
[2021-06-04 06:23] LABS: Hematocrit (blood only) 36.7 % (37-47)
[2021-06-04] MEDS: FERROUS SULFATE 325 MG TAB PO SCH (07:29)
[2021-06-04] MEDS: DOCUSATE SODIUM 100 MG CAP PO SCH (07:29)
[2021-06-04] MEDS: PRENATAL VITAMIN 1 TAB PO SCH (07:29)
--- NOTE | 2021-06-04 09:54 | Obstetrical Progress Note ---
Date of Service June 04, 2021 Subjective Ambulation: ambulating normally Voiding: no voiding problems Passing Gas:: Yes Diet Tolerance:: regular diet Feeding Type:: breast feeding Current Pain Level(1-10): 0 Physical Exam Constitutional WD/WN, vitals as above comfortable Results & Data ([facility]) Vital Signs (Past 12 Hours) Vital Signs Temp Pulse Resp BP Pulse Ox 06/04/21 07:30 36.7 C 84 21 113/75 06/03/21 23:10 36.8 C 68 16 128/85 99 Diagnostic Findings Laboratory Results - last 48 hr 06/03/21 06/03/21 06/04/21 06:03 06:03 06:05 WBC 12.74 H RBC 4.06 L Hgb 10.9 L 12.0 Hct 33.7 L 36.7 L MCV 83.0 MCH 26.8 MCHC 32.3 RDW Std Deviation 39.9 RDW Coeff of [place] 13.2 Plt Count 306 MPV 9.6 Blood Type A Negative Antibody Screen NEGATIVE Screen Negative
== END 2021-06-04 11:05 | disposition home or self-care (01) | DRG 807 ==
LOC: OPB 04:06 → 4S1 04:09 → 4S2 09:23